=== PATIENT | female | born 1980 | race Caucasian/White ===

== ENCOUNTER 2017-09-05 13:09 | Outpatient (RCR) | payer BC ==
[2017-09-12] MEDS ORDERED: BRILINTA90 MG PO (18:08)
[2017-09-12] MEDS ORDERED: NITROSTAT0.4 MG/TAB SL (18:09)
[2017-09-12] MEDS ORDERED: LIPITOR 80MG80 MG PO (18:09)
[2017-09-12] MEDS ORDERED: PRINIVIL5 MG PO (18:09)
[2017-09-12] MEDS ORDERED: TENORMIN 2525 MG/TAB PO (18:10)
[2017-09-12] MEDS ORDERED: ELIQUIS 5MG PO (18:10)
[2017-09-12] MEDS ORDERED: ASPIRIN 81M81 MG/TA2 PO (18:11)
[2017-09-12] MEDS ORDERED: NORCO 325 MG-51 TAB PO (19:16)
== END 2017-10-08 13:40 | disposition home or self-care (01) ==
LOC: COL.CR 13:09
DX: Z48.812 Encounter for surgical aftercare following surgery on the circulatory system (principal)

== ENCOUNTER 2017-09-12 17:13 | Emergency (ER) | payer BC ==
[~2017-09-12] VITALS: Ht 162.6 cm; Wt 68.6 kg
[2017-09-12 17:31] VITALS: BP 172/105; PULSE 104; TEMP 98
[2017-09-12] MEDS ORDERED: BRILINTA90 MG PO (18:08)
[2017-09-12] MEDS ORDERED: LIPITOR 80MG80 MG PO (18:09)
[2017-09-12] MEDS ORDERED: NITROSTAT0.4 MG/TAB SL (18:09)
[2017-09-12] MEDS ORDERED: PRINIVIL5 MG PO (18:09)
[2017-09-12] MEDS ORDERED: TENORMIN 2525 MG/TAB PO (18:10)
[2017-09-12] MEDS ORDERED: ELIQUIS 5MG PO (18:10)
[2017-09-12] MEDS ORDERED: ASPIRIN 81M81 MG/TA2 PO (18:11)
[2017-09-12] MEDS ORDERED: NORCO 325 MG-51 TAB PO (19:16)
== END 2017-09-12 19:35 | disposition home or self-care (01) ==
LOC: COL.ER 17:13
DX: M79.661 Pain in right lower leg (principal); I25.10 Atherosclerotic heart disease of native coronary artery without angina pectoris; I25.2 Old myocardial infarction; Z86.718 Personal history of other venous thrombosis and embolism; Z87.891 Personal history of nicotine dependence; Z95.5 Presence of coronary angioplasty implant and graft; Z79.01 Long term (current) use of anticoagulants; Z79.82 Long term (current) use of aspirin

== ENCOUNTER → 2017-10-29 | Outpatient (CLI) | payer BC ==
[~2017-10-29] MED LIST: ASPIRIN 81M81 MG/TA2 PO; BRILINTA90 MG PO; ELIQUIS 5MG PO; LIPITOR 80MG80 MG PO; NITROSTAT0.4 MG/TAB SL; NORCO 325 MG-51 TAB PO; PRINIVIL5 MG PO; TENORMIN 2525 MG/TAB PO
[2017-10-29 16:36] LABS: BASO # 0.1 (0.0-0.2); BASO % 0.9 % (0.0-2.0); EOS # 0.3 (0.0-0.7); EOS % 1.8 % (0-4.0); GRAN # 9.7 (1.4-6.5); GRAN % 68.4 % (42.2-75.2); HEMOGLOBIN 13.3 g/dl (12.5-16.0); LYMPH # 3.2 (1.2-3.4); LYMPH % 22.6 % (20.0-51.0); MEAN CELL VOLUME 96 fl (80.0-100.0); MEAN CORPUSCULAR HEMOGLOBIN 32 pg (27.0-31.0); MEAN CORPUSCULAR HGB CONC 33 g/dl (33.0-37.0); MEAN PLATELET VOLUME 9.3 fl (7.4-10.4); MONO # 0.9 (0.1-0.6); MONO % 6.1 % (1.7-9.3); PLATELET COUNT 443 K/mm3 (130-400); RED BLOOD COUNT 4.18 M/mm3 (4.10-5.30); REDCELL DISTRIBUTION WIDTH-CV 13.7 % (11.5-14.5)
== END ==
LOC: COL.LAB 16:16
PROVIDERS: Family Medicine
DX: T14.8XXA Other injury of unspecified body region, initial encounter (principal); R94.6 Abnormal results of thyroid function studies

== ENCOUNTER → 2018-06-05 | Outpatient (CLI) | payer BC ==
[2018-06-05 18:24] LABS: ALBUMIN 4.8 gm/dL (3.5-5.0); BILIRUBIN,TOTAL 0.6 mg/dL (0.0-1.0); CALCIUM 9.8 mg/dL (8.4-10.2); CHOLESTEROL RISK RATIO 1.8; CREATININE, serum 0.59 mg/dL (0.52-1.25); TOTAL PROTEIN 8.2 gm/dL (6.4-8.2)
[2018-06-05 18:32] LABS: BASO # 0.1 (0.0-0.2); BASO % 1.4 % (0.0-2.0); EOS # 0.1 (0.0-0.7); GRAN # 4.7 (1.4-6.5); GRAN % 60.2 % (42.2-75.2); HEMATOCRIT 42.2 % (37.0-47.0); LYMPH # 2.4 (1.2-3.4); LYMPH % 30.3 % (20.0-51.0); MEAN CELL VOLUME 95 fl (80.0-100.0); MEAN CORPUSCULAR HEMOGLOBIN 32 pg (27.0-31.0); MEAN CORPUSCULAR HGB CONC 33 g/dl (33.0-37.0); MEAN PLATELET VOLUME 9.8 fl (7.4-10.4); MONO # 0.5 (0.1-0.6); MONO % 6.8 % (1.7-9.3); PLATELET COUNT 460 K/mm3 (130-400); RED BLOOD COUNT 4.44 M/mm3 (4.10-5.30); REDCELL DISTRIBUTION WIDTH-CV 12.5 % (11.5-14.5)
[2018-06-05 18:54] LABS: THYROID STIMULATING HORMONE 0.151 uIU/mL (0.465-4.680)
== END ==
LOC: ZCOL.LAB 16:50
PROVIDERS: Family Medicine
DX: Z13.29 Encounter for screening for other suspected endocrine disorder (principal); Z13.0 Encounter for screening for diseases of the blood and blood-forming organs and certain disorders involving the immune mechanism; I25.10 Atherosclerotic heart disease of native coronary artery without angina pectoris; R63.5 Abnormal weight gain

== ENCOUNTER 2018-12-01 21:24 | Observation (INO) | payer BC ==
[~2018-12-01] VITALS: Ht 162.6 cm; Wt 76.3 kg
[2018-12-01 22:26] LABS: BASO # 0.1 (0.0-0.2); BASO % 0.8 % (0.0-2.0); EOS # 0.2 (0.0-0.7); EOS % 1.5 % (0-4.0); GRAN # 7.6 (1.4-6.5); GRAN % 63.6 % (42.2-75.2); HEMATOCRIT 40.4 % (37.0-47.0); HEMOGLOBIN 13.7 g/dl (12.5-16.0); LYMPH # 3.2 (1.2-3.4); LYMPH % 26.8 % (20.0-51.0); MEAN CELL VOLUME 94 fl (80.0-100.0); MEAN CORPUSCULAR HEMOGLOBIN 32 pg (27.0-31.0); MEAN CORPUSCULAR HGB CONC 34 g/dl (33.0-37.0); MEAN PLATELET VOLUME 9.4 fl (7.4-10.4); MONO # 0.8 (0.1-0.6); MONO % 6.9 % (1.7-9.3); PLATELET COUNT 379 K/mm3 (130-400); REDCELL DISTRIBUTION WIDTH-CV 13.2 % (11.5-14.5)
[2018-12-01 22:37] LABS: ALANINE AMINOTRANSFERASE 18 U/L (9-52); ALBUMIN 4.5 gm/dL (3.5-5.0); ALKALINE PHOSPHATASE 56 U/L (50-136); ANION GAP 11 mmol/L (7-16); AST,SGOT 26 U/L (15-37); BILIRUBIN,TOTAL 0.2 mg/dL (0.0-1.0); BLOOD UREA NITROGEN 16 mg/dL (7-17); C-REACTIVE PROTEIN 0.7 mg/dL (0.0-0.9); CALCIUM 9.3 mg/dL (8.4-10.2); CARBON DIOXIDE 25 mmol/L (22-30); CHLORIDE 105 mmol/L (98-107); CREATININE, serum 0.68 (0.52-1.25); GLUCOSE 101 mg/dL (74-106); LIPASE 78 U/L (23-300); POTASSIUM 3.9 mmol/L (3.4-5.0); SODIUM 141 mmol/L (137-145); TOTAL PROTEIN 8.1 gm/dL (6.4-8.2)
[2018-12-01 22:46] LABS: TROPONIN-I < 0.012 ng/mL (0.000-0.035)
[2018-12-01 23:20] LABS: INR 0.9 (0.8-3.0); PROTHROMBIN TIME 10.7 SECONDS (9.7-12.8)
[2018-12-01 23:22] LABS: PARTIAL THROMBOPLASTIN TIME 30.6 SECONDS (26.0-37.0)
[2018-12-01 23:28] LABS: D-DIMER < 200.00 ng/mLDDu (200-230)
[2018-12-02] MEDS ORDERED: ATARAX 25MG25 MG/TAB PO (00:45)
[2018-12-02 01:17] VITALS: BP 132/68; PULSE 79; TEMP 98.2
--- NOTE | 2018-12-02 02:46 | NUR ---
PATIENT ADMITTED TO FLOOR FROM ER BY DR. [facility] FOR OBSERVATION FOR CHEST PAIN. UPON ARRIVAL TO FLOOR PATIENT A/O X 4. REPORTING DULL SUBSTERNAL CHEST PAIN. NO SOA. ATTITUDE CALM AND COOPERATIVE. MEDICATIONS REVEIWED. FULL ADMISSION ASSESSMENT COMPLETED. TELEMETRY IN PLACE SHOWING NSR. ICE WATER PROVIDED. PATIENT DENIES COMPLAINTS OR CONCERNS AT END OF VISIT.
[2018-12-02 03:57] VITALS: BP 116/71; PULSE 74; TEMP 98
--- NOTE | 2018-12-02 07:15 | NUR ---
Report received from ELLA Fournier. Pt in bed resting with no needs, will continue to monitor.
[2018-12-02 08:31] VITALS: BP 125/80; PULSE 71; TEMP 98
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
--- NOTE | 2018-12-02 10:18 | NUR ---
Report given to ELLA Thomas who will resume care.
--- NOTE | 2018-12-02 10:27 | NUR ---
Initial visit; Patient and her thanked Securities Counselor for looking in on her and wishing her well and God's blessings. Securities Counselor will follow up.
[2018-12-02] MEDS ORDERED: LIPITOR 40MG TA40 MG PO (10:56)
[2018-12-02] MEDS ORDERED: PRIL40 PO (10:57)
--- NOTE | 2018-12-02 13:02 | NUR ---
Completed discharge education and paperwork signing; Removed LFA INT IV with full cateter intact; No further questions or concerns at time of discharge teaching; PT riding home in personal vehicle with spouse; PT escorted down to main hospital exit via WC with [facility] staff. SOANL
--- NOTE | 2018-12-02 15:17 | NUR ---
SW unable to meet with patient before discharge.
== END 2018-12-02 13:00 | disposition home or self-care (01) ==
LOC: COL.ER 21:24 → MEDICAL 23:55
PROVIDERS: Emergency Medicine; ADMIT Internal Medicine Interventional Cardiology
DX: R07.9 Chest pain, unspecified (principal); I25.2 Old myocardial infarction; F41.9 Anxiety disorder, unspecified; I25.10 Atherosclerotic heart disease of native coronary artery without angina pectoris; I46.9 Cardiac arrest, cause unspecified; Z79.82 Long term (current) use of aspirin; Z87.891 Personal history of nicotine dependence; Z86.718 Personal history of other venous thrombosis and embolism
CPT/HCPCS: G0378

== ENCOUNTER → 2018-12-03 | Outpatient (CLI) | payer BC ==
[~2018-12-03] MED LIST changes: +ATARAX 25MG25 MG/TAB PO; +LIPITOR 40MG TA40 MG PO; +PRIL40 PO
[2018-12-03 17:26] LABS: CHOLESTEROL RISK RATIO 3.1
[2018-12-03 17:57] LABS: THYROID STIMULATING HORMONE 1.08 uIU/mL (0.465-4.680)
== END ==
LOC: ZCOL.LAB 16:07
PROVIDERS: Family Medicine
DX: I25.10 Atherosclerotic heart disease of native coronary artery without angina pectoris (principal); R94.6 Abnormal results of thyroid function studies

== ENCOUNTER → 2019-05-24 | Outpatient (CLI) | payer BC ==
[2019-05-24 12:49] LABS: CHOLESTEROL RISK RATIO 2.6
[2019-05-24 23:17] LABS: FOLLICLE STIMULATING HORMONE 8.1 mIU/mL (()); LUTENIZING HORMONE 3.6 mIU/mL (())
== END ==
LOC: COL.LAB 12:05
PROVIDERS: Family Medicine
DX: N91.2 Amenorrhea, unspecified (principal); I25.10 Atherosclerotic heart disease of native coronary artery without angina pectoris